=== PATIENT | male | born 1970 ===

== ENCOUNTER 2018-06-10 00:24 | Outpatient (CLI) | payer SELFPAY | END 2018-06-10 23:59 | disposition home or self-care (01) | LOC: DIABETIC 00:24 | PROVIDERS: ATTEND Family Medicine | DX: E11.9 Type 2 diabetes mellitus without complications (principal) | CPT/HCPCS: G0108 ==

== ENCOUNTER 2018-09-26 01:33 | Outpatient (CLI) | payer BC | END 2018-09-26 23:59 | disposition home or self-care (01) | LOC: DIABETIC 01:33 | PROVIDERS: ATTEND Family Medicine | DX: E11.9 Type 2 diabetes mellitus without complications (principal) | CPT/HCPCS: G0108 ==

== ENCOUNTER 2020-01-20 04:11 | Outpatient (CLI) | payer BC | END 2020-01-20 23:59 | disposition home or self-care (01) | LOC: DIABETIC 04:11 | PROVIDERS: ATTEND Family Medicine | DX: E11.9 Type 2 diabetes mellitus without complications (principal) | CPT/HCPCS: G0108 ==